=== PATIENT | male | born 1995 | race Hispanic/Latino ===

== ENCOUNTER 2020-02-02 09:08 | Emergency (ER) | payer SELFPAY ==
[~2020-02-02] VITALS: Ht 162.6 cm; Wt 69.4 kg
[2020-02-02] MEDS ORDERED: SODIUM CHLORIDE 0.9% 1000ML 1,000 ML IV SCH (09:15)
[2020-02-02] MEDS ORDERED: ONDANSETRON HCL INJ 2MG/ML 2ML 2 MG/ML VIAL IV PRN (09:15)
[2020-02-02] MEDS ORDERED: FENTANYL CITRATE/PF 100MCG/2 ML INJ IV ONE (09:15)
--- NOTE | 2020-02-02 09:17 | Emergency Department Note ---
History of Present Illnes History of Present Illness Chief Complaint: Abdominal Complaints History of Present Illness This is a 25 year old male Chief Complaint Comment PATIENT IN FROM HOME WITH COMPLAINTS OF MID ABDOMINAL PAIN X 3 DAYS; REPORTS DIARRHEA THE FIRST DAY AND POOR APPETITE; DENIES VOMITING. PATIENT RATES PAIN 8/10, DENIES ANY BURNING OR PAIN WITH URINATION. Historian: Patient Arrival Mode: Car Hvac Instructor Required: No Onset (how long ago): day(s) (3) Location: umbillical, RLQ Quality: Sharp Radiation: Reports non-radiation Severity: moderate Onset quality: gradual Duration (how long): day(s) (3) Timing of current episode: intermittent Progression: worsening Chronicity: new Context: Denies recent illness, Denies recent surgery Relieving factors: none Exacerbating factors: none Associated symptoms: Reports denies other symptoms Treatments prior to arrival: none Past Medical/Family History Physician Review I have reviewed the patient's past medical and family history. Any updates have been documented here. Past Medical History Recent Fever: No Clinical Suspicion of Infectio: No New/Unexplained Change in Ment: No Past Medical History: None Past Surgical History: None Social History Physically hurt or threatened: No Review of Systems Review of Systems Constitutional: Reports as per HPI EENTM: Reports no symptoms Cardiovascular: Reports no symptoms Respiratory: Reports no symptoms Gastrointestinal: Reports as per HPI, Reports abdominal pain (RLQ, umbillical) Genitourinary: Reports no symptoms Musculoskeletal: Reports no symptoms Integumentary: Reports no symptoms Neurological: Reports no symptoms Psychological: Reports no symptoms Endocrine: Reports no symptoms Hematological/Lymphatic: Reports no symptoms Physical Exam Related Data Allergies: Coded Allergies: No Known Allergies (Unverified , 02/02/20) Triage Vital Signs Vital Signs Date Time Temp Pulse Resp B/P (MAP) Pulse Ox O2 Delivery O2 Flow Rate FiO2 02/02/20 09:10 97.9 67 18 141/95 100 Room Air Vital signs reviewed: Yes Physical Exam CONSTITUTIONAL Constitutional: Present well-developed, Present well-nourished HENT HENT: Present normocephalic, Present atraumatic, Present oropharynx clear/moist, Present nose normal HENT L/R: Present left ext ear normal, Present right ext ear normal EYES Eyes: Reports PERRL, Reports conjunctivae normal NECK Neck: Present ROM normal PULMONARY Pulmonary: Present effort normal, Present breath sounds normal CARDIOVASCULAR Cardiovascular: Present regular rhythm, Present heart sounds normal, Present capillary refill normal, Present normal rate GASTROINTESTINAL Abdominal: Present soft, Present bowel sounds normal, Present tender (RLQ) GENITOURINARY Genitourinary: Present exam deferred SKIN Skin: Present warm, Present dry MUSCULOSKELETAL Musculoskeletal: Present ROM normal NEUROLOGICAL Neurological: Present alert, Present oriented x 3, Present no gross motor or sensory deficits PSYCHOLOGICAL Psychological: Present mood/affect normal, Present judgement normal Assessment & Plan Medical Decision Making MDM 25-year-old male with no significant past medical history reports the emergency department for umbilical/right lower quadrant abdominal pain. He states he has decreased appetite as well. Initial differential significant for appendicitis versus functional abdominal pain versus gastroenteritis. Exam significant for right lower quadrant tenderness to palpation. Workup shows colitis. Favor viral in nature. Doubt emergent process at this time. I discussed results patient as well as expected disease time course and management. They will follow up with their primary care provider or return to the emergency department for new or worsening symptoms. Patient's appropriate for discharge. Part of this note was dictated with Kristy and is subject to recognition errors. Reassessment Reassessment time: 12:14 Reassessment Well appearing, NAD Assessment & Plan Final Impression: (1) Colitis Depart Disposition: HOME, SELF-CARE Last Vital Signs Date Time Temp Pulse Resp B/P (MAP) Pulse Ox O2 Delivery O2 Flow Rate FiO2 02/02/20 09:10 97.9 67 18 141/95 100 Room Air Medications in the ED Ondansetron HCl 4 mg Q4H PRN IV NAUSEA AND VOMITING; Start 02/02/20 at 09:15; Stop 03/03/20 at 09:14; Status UNV Sodium Chloride 1,000 ml @ 100 mls/hr Q10H IV ; Start 02/02/20 at 09:15; Stop 03/03/20 at 09:14; Status UNV Fentanyl Citrate 50 mcg ONCE ONCE IV ; Start 02/02/20 at 09:15; Stop 02/02/20 at 09:16; Status UNV MERA BOOKER MD Feb 02, 2020 09:17
[2020-02-02 09:29] LABS: BASOPHILS % 0.3 % (0.0-1.0); EOSINOPHILS # (AUTO) 0.3 (0.0-0.4); EOSINOPHILS % 3.3 % (0.0-6.0); HEMATOCRIT 45.4 % (38.2-49.6); HEMOGLOBIN 15.4 g/dL (14.0-18.0); LYMPHOCYTES # (AUTO) 2.5 (1.0-3.2); LYMPHOCYTES % 26.6 % (18.0-39.1); MEAN CORPUSCULAR HEMOGLOBIN 30.7 pg (28-32); MEAN CORPUSCULAR HGB CONC 33.9 g/dL (31-35); MEAN CORPUSCULAR VOLUME 90.6 fL (81-99); MONOCYTES # (AUTO) 0.8 (0.2-0.8); MONOCYTES % 8.8 % (4.4-11.3); NEUTROPHILS # (AUTO) 5.7 (2.1-6.9); NEUTROPHILS % 60.7 % (38.7-80.0); PLATELET COUNT 192 x10e3/uL (140-360); RED BLOOD COUNT 5.01 x10e6/uL (4.3-5.7); RED CELL DISTRIBUTION WIDTH 12.3 % (11.7-14.4)
[2020-02-02 09:39] LABS: BILIRUBIN,URINE NEGATIVE (NEGATIVE); CLARITY,URINE CLEAR (CLEAR); COLOR,URINE YELLOW (YELLOW); KETONES,URINE NEGATIVE (NEGATIVE); LEUKOCYTE ESTERASE ,URINE NEGATIVE (NEGATIVE); NITRITE,URINE NEGATIVE (NEGATIVE); PROTEIN,URINE DIPSTICK NEGATIVE (NEGATIVE); URINE UROBILINOGEN 0.2 mg/dL (0.2 - 1)
[2020-02-02 09:47] LABS: ALANINE AMINOTRANSFERASE 9 IU/L (0-55); ALBUMIN/GLOBULIN RATIO 1.2 (0.8-2.0); ALKALINE PHOSPHATASE 54 IU/L (40-150); ANION GAP 14.3 mmol/L (8-16); BLOOD UREA NITROGEN 10 mg/dL (7-26); BUN/CREATININE RATIO 10 (6-25); CARBON DIOXIDE 23 mmol/L (22-29); CHLORIDE 104 mmol/L (98-107); CREATININE, SERUM 0.97 mg/dL (0.72-1.25); EST GLOMERULAR FILTRATION RATE > 60 ML/MIN (60-); GLUCOSE 103 mg/dL (74-118); POTASSIUM 4.3 mmol/L (3.5-5.1); SODIUM 137 mmol/L (136-145)
[2020-02-02 09:54] LABS: BACTERIA,URINE MODERATE /HPF; EPITHELIAL CELLS,URINE RARE /LPF; MUCUS,URINE MANY (RARE); WBC,URINE (MAN) 0-5 /HPF (0-5)
[2020-02-02] MEDS ORDERED: IOPAMIDOL 370 MG/ML 200 ML INFUS..BTL INJ ONE (10:20)
[2020-02-02] MEDS ORDERED: SODIUM CHLORIDE 0.9% 50ML 50 ML ONE (10:20)
--- NOTE | 2020-02-02 10:44 | Diagnostic Imaging Report ---
EXAM: CT Abdomen and Pelvis WITH intravenous contrast INDICATION: Right lower quadrant pain COMPARISON: None. TECHNIQUE: Abdomen and pelvis were scanned utilizing a multidetector helical scanner from the lung base to the pubic symphysis after administration of IV contrast. Coronal and sagittal reformations were obtained. Routine protocol was performed. Scan was performed during portal venous phase. IV CONTRAST: 100mL of Isovue 370 ORAL CONTRAST: Water RADIATION DOSE: Total DLP: 301 mGy*cm Dose modulation, iterative reconstruction, and/or weight based adjustment of the mA/kV was utilized to reduce the radiation dose to as low as reasonably achievable. FINDINGS: LOWER THORAX: Normal. HEPATOBILIARY: Diffuse hepatic steatosis. No focal liver lesion. No biliary ductal dilation. Unremarkable gallbladder. SPLEEN: No splenomegaly. PANCREAS: No focal masses or ductal dilatation. ADRENALS: No adrenal nodules. KIDNEYS/URETERS: No hydronephrosis, stones, or solid mass lesions. PELVIC ORGANS/BLADDER: Unremarkable. PERITONEUM / RETROPERITONEUM: No free air or fluid. LYMPH NODES: No lymphadenopathy. VESSELS: Unremarkable. GI TRACT: Mild wall thickening and bowel wall edema of the terminal ileum and proximal ascending colon. Normal appendix. BONES AND SOFT TISSUES: Unremarkable. IMPRESSION: Mild wall thickening and bowel wall edema involving the terminal ileum and proximal ascending colon can be seen in the setting of enterocolitis. Inflammatory bowel disease is also in the differential. Normal appendix. Diffuse hepatic steatosis. Signed by: Shamika Kasper MD on 02/02/2020 10:41 AM
== END 2020-02-02 12:33 | disposition home or self-care (01) ==
LOC: ER 10:24
DX: R10.31 Right lower quadrant pain (principal); K52.9 Noninfective gastroenteritis and colitis, unspecified
CPT/HCPCS: 36415; 74177; 80053; 81001; 83690; 85025; 99284; J2405; J3010; J7030; Q9967